=== PATIENT | male | born 1955 | race Caucasian/White ===

== ENCOUNTER → 2020-05-08 | Outpatient (CLI) | payer OTHER | END | disposition home or self-care (01) | LOC: CFH 10:40 | PROVIDERS: ATTEND Internal Medicine Cardiovascular Disease | DX: I08.8 Other rheumatic multiple valve diseases (principal); I11.9 Hypertensive heart disease without heart failure; R01.1 Cardiac murmur, unspecified | CPT/HCPCS: 93306 ==

== ENCOUNTER 2020-05-15 13:59 | Emergency (ER) | payer OTHER ==
[~2020-05-15] VITALS: Ht 177.8 cm; Wt 90.4 kg
[2020-05-15 14:51] LABS: BASOPHILS % (AUTO) 1 % (0-1); EOSINOPHILS % (AUTO) 4 % (1-7); LYMPHOCYTES % (AUTO) 24 % (22-44); MEAN CORPUSCULAR HEMOGLOBIN 28.2 pg (27.5-34.5); MEAN CORPUSCULAR HGB CONC 32.7 g/dL (33.2-36.2); MEAN PLATELET VOLUME 7.9 fL (7.4-10.4); MONOCYTES % (AUTO) 12 % (2-9); NEUTROPHILS % (AUTO) 60 % (42-75); PLATELET COUNT 211 x10^3/uL (130-400); RED BLOOD COUNT 5.25 x10^6/uL (4.38-5.82)
--- NOTE | 2020-05-15 14:52 | NUR ---
PATIENT TO ROOM FROM LOBBY
[2020-05-15 14:59] LABS: ALBUMIN 4.1 g/dL (3.4-5.0); CALCIUM 9.3 mg/dL (8.5-10.1)
[2020-05-15 15:05] LABS: ALANINE AMINOTRANSFERASE 28 U/L (12-78); ALKALINE PHOSPHATASE 49 U/L (45-117); ANION GAP 4 mmol/L (5-15); BILIRUBIN,TOTAL 0.5 mg/dL (0.2-1.0); CHLORIDE 109 mmol/L (98-107); TOTAL PROTEIN 7.6 g/dL (6.4-8.2); TROPONIN I < 0.015 ng/mL (0.000-0.045)
--- NOTE | 2020-05-15 15:07 | NUR ---
THIS IS A 65 YO MALE COMING IN WITH INTERMITTENT CHEST PAIN PAIN FOR THE PAST FEW MONTHS, SENT HERE FROM [employer] AGENT FOR LOW HR. PATIENT WAS TAKING METOPROLOL THE PAST WEEK DUE TO HIGH HR EARLIER THIS MONTH, BUT [employer] AGENT TOLD PATIENT TO DISCONTINUE MEDICATION AND COME HERE. ALL MONITORING IN PLACE, AFIB APPEARS TO BE PRESENT ON MONITOR WITH HR IN HIGH 40'S TO LOW 50'S. PATIENT IS A&OX4, AMBULATORY WITH STEADY GAIT. PATIENT HAS CHEST PAIN LOCATED STERNALLY AND RADIATES TO THE LEFT SIDE OF CHEST, HAS ACCOMPANYING INTERMITTENT NAUSEA. CALL LIGHT IN REACH.
[2020-05-15 15:10] LABS: MD NO
--- NOTE | 2020-05-15 15:21 | NUR ---
PATIENT TO XRAY
--- NOTE | 2020-05-15 16:20 | NUR ---
Patient given discharge instructions and they have confirmed that they understand the instructions. Patient ambulatory with steady gait.
[2020-05-15 16:21] VITALS: BP 135/72
== END 2020-05-15 16:22 | disposition home or self-care (01) ==
LOC: ED 16:00
DX: R07.89 Other chest pain (principal); I10 Essential (primary) hypertension; R00.1 Bradycardia, unspecified; R06.02 Shortness of breath
CPT/HCPCS: 36415; 71046; 80053; 83735; 84484; 85025; 93005; 99285

== ENCOUNTER → 2020-05-20 | Outpatient (CLI) | payer OTHER ==
[~2020-05-20] MED LIST: REGADENOSON 0.4 MG/5 ML SYRINGE ONE
== END | disposition home or self-care (01) ==
LOC: CFH 08:15
PROVIDERS: ATTEND Internal Medicine Cardiovascular Disease
DX: I10 Essential (primary) hypertension (principal); R07.89 Other chest pain; R94.30 Abnormal result of cardiovascular function study, unspecified
CPT/HCPCS: 78452; 93017; A9502; J2785

== ENCOUNTER 2020-06-11 06:39 | Day surgery (SDC) | payer OTHER ==
[~2020-06-11] VITALS: Ht 177.8 cm; Wt 89.0 kg
[2020-06-11 07:11] VITALS: BP 131/81
[2020-06-11] MEDS ORDERED: LOSA25TA25 PO (07:26)
[2020-06-11] MEDS ORDERED: LANS30CA PO (07:27)
[2020-06-11] MEDS ORDERED: SODIUM CHLORIDE 0.9% 1,000 ML IV ONE (07:30)
[2020-06-11] MEDS ORDERED: PROPOFOL 10 MG/ML, 20ML ONE (08:52)
== END 2020-06-11 10:28 | disposition home or self-care (01) ==
LOC: CACL 06:39
PROVIDERS: ATTEND Internal Medicine Cardiovascular Disease
DX: R94.30 Abnormal result of cardiovascular function study, unspecified (principal); I35.1 Nonrheumatic aortic (valve) insufficiency; I34.0 Nonrheumatic mitral (valve) insufficiency; I10 Essential (primary) hypertension; Z88.2 Allergy status to sulfonamides; Z88.1 Allergy status to other antibiotic agents; Z20.828 Contact with and (suspected) exposure to other viral communicable diseases; Z79.899 Other long term (current) drug therapy; Z72.89 Other problems related to lifestyle; Z98.890 Other specified postprocedural states
CPT/HCPCS: 93312; 93321; 93325; J2704; U0003

== ENCOUNTER 2020-06-21 22:35 | Emergency (ER) | payer OTHER ==
[~2020-06-21] VITALS: Ht 177.8 cm; Wt 92.9 kg
[~2020-06-21 22:35] MED LIST changes: +LANS30CA PO; +LOSA25TA25 PO; -REGADENOSON 0.4 MG/5 ML SYRINGE ONE
--- NOTE | 2020-06-21 23:00 | NUR ---
Pt hooked up to monitor and zol
--- NOTE | 2020-06-21 23:01 | NUR ---
RN at bedside, physician at bedside. Pt currently in SVT.
--- NOTE | 2020-06-21 23:02 | NUR ---
Attempted vagal maneuver. Unsuccessful.
[2020-06-21] MEDS ORDERED: ADENOSINE 6 MG/2 ML ONE (23:03)
--- NOTE | 2020-06-21 23:07 | NUR ---
HR 153, giving 12 adenosine.
--- NOTE | 2020-06-21 23:07 | NUR ---
6 adenosine given. HR went from 153 down to 127 then back up to 153.
--- NOTE | 2020-06-21 23:08 | NUR ---
HR from 153 to 117 after 12 adenosine. Heart rhythm a-flutter.
[2020-06-21 23:29] LABS: BASOPHILS % (AUTO) 1 % (0-1); EOSINOPHILS % (AUTO) 2 % (1-7); LYMPHOCYTES % (AUTO) 25 % (22-44); MEAN CORPUSCULAR HEMOGLOBIN 28.1 pg (27.5-34.5); MEAN CORPUSCULAR HGB CONC 33.1 g/dL (33.2-36.2); MEAN PLATELET VOLUME 8.1 fL (7.4-10.4); MONOCYTES % (AUTO) 13 % (2-9); NEUTROPHILS % (AUTO) 59 % (42-75); PLATELET COUNT 205 x10^3/uL (130-400); RED BLOOD COUNT 5.45 x10^6/uL (4.38-5.82); RED CELL DISTRIBUTION WIDTH 14.2 % (9.4-14.8)
[2020-06-21] MEDS ORDERED: ADENOSINE 6 MG/2 ML IVPush ONE ×2 (23:30)
[2020-06-21] MEDS ORDERED: DIGOXIN 0.25 MG/ML, 2ML IVPush ONE (23:30)
[2020-06-21] MEDS ORDERED: DIGOXIN 0.25 MG/ML, 2ML ONE (23:30)
[2020-06-21 23:32] LABS: ALBUMIN 3.7 g/dL (3.4-5.0); ANION GAP 6 mmol/L (5-15); CALCIUM 9.1 mg/dL (8.5-10.1); CHLORIDE 110 mmol/L (98-107); CREATININE 1.04 mg/dL (0.7-1.3)
[2020-06-21 23:36] LABS: TROPONIN I < 0.015 ng/mL (0.000-0.045)
[2020-06-21 23:39] LABS: MD NO
--- NOTE | 2020-06-21 23:48 | NUR ---
Giving pt.'s update on the phone- pt gave permission for this.
[2020-06-22] MEDS ORDERED: DILTIAZEM 5 MG/ML, 5ML ONE (00:12)
--- NOTE | 2020-06-22 00:14 | NUR ---
Giving 2nd dose of diltiazem.
[2020-06-22] MEDS ORDERED: DILTIAZEM 5 MG/ML, 5ML IVPush ONE (00:30)
[2020-06-22 01:00] VITALS: BP 129/88
--- NOTE | 2020-06-22 01:00 | NUR ---
Pt.'s sister at bedside. RN at bedside.
[2020-06-22] MEDS ORDERED: RIVAROXABAN 20 MG TABLET ONE (01:14)
[2020-06-22] MEDS ORDERED: RIVAROXABAN 20 MG TABLET PO ONE (01:30)
== END 2020-06-22 01:41 | disposition other institution (70) ==
LOC: ED 06-22 01:00
DX: I48.92 Unspecified atrial flutter (principal); I21.9 Acute myocardial infarction, unspecified; I47.1 Supraventricular tachycardia; I45.9 Conduction disorder, unspecified; I44.30 Unspecified atrioventricular block; R07.9 Chest pain, unspecified; I10 Essential (primary) hypertension
CPT/HCPCS: 36415; 71045; 80048; 82040; 84484; 85025; 92960; 93005; 96374; 96375; 99291; J0153; J1160; 96376

== ENCOUNTER 2020-06-24 05:35 | Emergency (ER) | payer OTHER ==
[~2020-06-24] VITALS: Ht 177.8 cm; Wt 89.8 kg
[2020-06-24] MEDS ORDERED: SODIUM CHLORIDE FLUSH 10ML SYR IVF ONE (06:00)
[2020-06-24] MEDS ORDERED: DILTIAZEM 5 MG/ML, 5ML IV ONE (06:00)
[2020-06-24] MEDS ORDERED: DILTIAZEM 125 MG in SODIUM CHLORIDE 0.9% 100 ML IV SCH (06:00)
[2020-06-24] MEDS ORDERED: DILTIAZEM 5 MG/ML, 5ML ONE (06:09)
[2020-06-24 06:36] LABS: BASOPHILS % (AUTO) 1 % (0-1); EOSINOPHILS % (AUTO) 1 % (1-7); LYMPHOCYTES % (AUTO) 24 % (22-44); MEAN CORPUSCULAR HEMOGLOBIN 27.8 pg (27.5-34.5); MEAN CORPUSCULAR HGB CONC 32.8 g/dL (33.2-36.2); MONOCYTES % (AUTO) 11 % (2-9); NEUTROPHILS % (AUTO) 63 % (42-75); PLATELET COUNT 207 x10^3/uL (130-400); RED BLOOD COUNT 5.42 x10^6/uL (4.38-5.82); RED CELL DISTRIBUTION WIDTH 14.3 % (9.4-14.8)
[2020-06-24 06:39] LABS: MD NO
[2020-06-24 06:42] LABS: ALBUMIN 3.6 g/dL (3.4-5.0); ANION GAP 6 mmol/L (5-15); CALCIUM 9.5 mg/dL (8.5-10.1); CHLORIDE 112 mmol/L (98-107)
[2020-06-24 06:47] LABS: TROPONIN I < 0.015 ng/mL (0.000-0.045)
[2020-06-24 06:48] LABS: INTERNATIONAL NORMALIZED RATIO 1.11 (0.93-1.1); PROTHROMBIN TIME 11.8 Seconds (9.6-11.5)
--- NOTE | 2020-06-24 07:12 | NUR ---
PT RESTING IN BED. SUPPORTIVE AT BEDSIDE. PT UPDATED ON PLAN OF CARE. VSS
[2020-06-24] MEDS ORDERED: PROPOFOL 10 MG/ML, 20ML ONE ×2 (07:33→08:22)
--- NOTE | 2020-06-24 08:06 | NUR ---
dr. multani to do procedural sedation.
[2020-06-24] MEDS ORDERED: PROPOFOL 10 MG/ML, 20ML IVPush ONE (09:00)
--- NOTE | 2020-06-24 09:24 | NUR ---
PT RESTING IN BED. UPDATED ON PLAN OF CARE. VSS.
--- NOTE | 2020-06-24 09:52 | NUR ---
ROAD TESTED PT. SITTING ON SIDE OF BED AND STANDING WAS TOLERATED WELL. DENIES DIZZINESS.
[2020-06-24 10:29] VITALS: BP 99/54
== END 2020-06-24 10:31 | disposition home or self-care (01) ==
LOC: ED 06:01
DX: I48.0 Paroxysmal atrial fibrillation (principal); Z20.828 Contact with and (suspected) exposure to other viral communicable diseases; R00.0 Tachycardia, unspecified; I25.2 Old myocardial infarction; R94.31 Abnormal electrocardiogram [ECG] [EKG]; I10 Essential (primary) hypertension
CPT/HCPCS: 36415; 71045; 80048; 82040; 83880; 84484; 85025; 85610; 85730; 87635; 92960; 93005; 93312; 93321; 93325; 96365; 96366; 96376; 99152; 99153; 99285; J2704; 96375

== ENCOUNTER 2020-06-27 09:19 | Emergency (ER) | payer OTHER ==
[~2020-06-27] VITALS: Ht 177.8 cm; Wt 88.9 kg
--- NOTE | 2020-06-27 09:56 | NUR ---
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 Pt is aware of necvessary CT scan and lab work.
[2020-06-27 10:22] LABS: BASOPHILS % (AUTO) 1 % (0-1); EOSINOPHILS % (AUTO) 1 % (1-7); LYMPHOCYTES % (AUTO) 20 % (22-44); MEAN CORPUSCULAR HGB CONC 33.2 g/dL (33.2-36.2); MEAN PLATELET VOLUME 7.6 fL (7.4-10.4); MONOCYTES % (AUTO) 11 % (2-9); NEUTROPHILS % (AUTO) 67 % (42-75); PLATELET COUNT 187 x10^3/uL (130-400); RED BLOOD COUNT 5.07 x10^6/uL (4.38-5.82); RED CELL DISTRIBUTION WIDTH 13.6 % (9.4-14.8)
[2020-06-27 10:24] LABS: MD NO
[2020-06-27 10:31] LABS: ALANINE AMINOTRANSFERASE 23 U/L (12-78); ALBUMIN 3.8 g/dL (3.4-5.0); ANION GAP 5 mmol/L (5-15); CALCIUM 9.1 mg/dL (8.5-10.1); CHLORIDE 110 mmol/L (98-107); CREATININE 0.99 mg/dL (0.7-1.3)
[2020-06-27 10:33] LABS: ALKALINE PHOSPHATASE 44 U/L (45-117); BILIRUBIN,TOTAL 0.7 mg/dL (0.2-1.0); TOTAL PROTEIN 7.3 g/dL (6.4-8.2)
--- NOTE | 2020-06-27 10:50 | NUR ---
Patient away to Ct via tech. Awaiting results.
[2020-06-27] MEDS ORDERED: OMNIPAQUE 350 MG/ML, 75ML BOTTLE ONE (11:00)
--- NOTE | 2020-06-27 11:45 | NUR ---
CT results. Chart up for ERP.
--- NOTE | 2020-06-27 11:57 | NUR ---
Pt up to bathroom. Drinking water.
--- NOTE | 2020-06-27 12:05 | NUR ---
TASK RN:PT GIVEN EATER, EMPTIED 500 ML URINAL
[2020-06-27 12:28] VITALS: BP 145/71
--- NOTE | 2020-06-27 12:29 | NUR ---
MARINO RN: Patient given discharge instructions and they have confirmed that they understand the instructions. Patient ambulatory with steady gait.
== END 2020-06-27 12:31 | disposition home or self-care (01) ==
LOC: ED 10:28
DX: R04.2 Hemoptysis (principal); I48.91 Unspecified atrial fibrillation; I48.92 Unspecified atrial flutter; R00.1 Bradycardia, unspecified; I10 Essential (primary) hypertension
CPT/HCPCS: 36415; 71275; 80053; 85025; 93005; 99285; Q9967